=== PATIENT | male | born 1985 | race Caucasian/White ===

== ENCOUNTER 2021-10-10 23:22 | Outpatient (CLI) | payer SELFPAY ==
[2021-10-10 23:36] LABS: Miscellaneous Test See Scanned Lab Rpt
== END 2021-10-10 23:23 | disposition home or self-care (01) ==
PROVIDERS: Visit Provider Pathology Anatomic Pathology & Clinical Pathology
DX: Z02.83 Encounter for blood-alcohol and blood-drug test (principal)
CPT/HCPCS: 36415